=== PATIENT | female | born 1990 | race African-American/Black ===

== ENCOUNTER 2020-11-14 23:19 | Inpatient (IN) ==
[2020-11-14] MEDS ORDERED: ONDANSETRON 4 MG/2 ML VIAL IV PRN (23:30)
[2020-11-14] MEDS ORDERED: LACTATED RINGERS 1,000 ML IV ONE (23:30)
[2020-11-14 23:56] LABS: Basophils % 0.2 % (0.0-0.8); Hematocrit 35.4 VOL% (35.7-47.0); Hemoglobin 11.2 GM/DL (12.0-16.0); Immature Granulocytes Absolute 0.16 #; Lymphocytes # 1.7 10*3/uL (1.4-4.0); Lymphocytes % 9.9 % (21.3-54.2); Mean Corpuscular HGB Conc 31.6 GM/DL (32-36); Mean Corpuscular Volume 78.5 FL (87-102); Mean Platelet Volume 9.7 FL (9.6-12.0); Monocytes % 1.2 % (1.7-12.7); Neutrophils % 87.7 % (38.7-73.9); Platelet Count 297 T/CUMM (130-400); Red Blood Count 4.51 MC/CUMM (3.8-5.5); Red Cell Distribution Width 14.8 % (9.3-17.3); White Blood Count 16.7 T/CUMM (4-12)
[2020-11-15 00:17] LABS: Alanine Aminotransferase 15 U/L (13-56); Albumin 2.6 G/DL (3.4-5.0); Alkaline Phosphatase 272 U/L (45-117); Aspartate Amino Transferase 17 U/L (0-37); Bilirubin,Total < 0.39 MG/DL (0.2-1.0); Blood Urea Nitrogen 9 MG/DL (7-18); Calcium 8.8 MG/DL (8.5-10.1); Carbon Dioxide 22 MMOL/L (21-32); Estimated Glom Filtration Rate 139 ML/MIN; Glucose 128 MG/DL (74-106); Osmolality,Calculated 273.8 MOS/KG (273-304); Sodium 137 MMOL/L (136-145); Total Protein 7.4 G/DL (6.4-8.2)
[2020-11-15] MEDS: LACTATED RINGERS 1,000 ML IV SCH ×2 (01:50→11:35)
[2020-11-15] MEDS: MEPERIDINE 50 MG/1 ML VIAL IV PRN ×2 (11:10→13:33)
[2020-11-15] MEDS ORDERED: NALOXONE 0.4 MG/ML VIAL IV PRN (13:34)
[2020-11-15] MEDS ORDERED: PROMETHAZINE 25 MG/1 ML VIAL IM ONE (13:34)
[2020-11-15] MEDS ORDERED: hydrOXYzine HCL 25 MG/1 ML VIAL IM PRN (13:34)
[2020-11-15] MEDS ORDERED: diphenhydrAMINE 50 MG/1 ML VIAL IV PRN ×2 (13:34)
[2020-11-15] MEDS ORDERED: ePHEDrine 50 MG/ML VIAL IV PRN (13:34)
[2020-11-15] MEDS ORDERED: fentaNYL 2 MCG/ROPIV 0.2% EPID 100 ML EPIDURAL SCH (14:00)
[2020-11-15] MEDS ORDERED: TERBUTALINE 1 MG/1 ML VIAL SUBCUT ONE (14:17)
[2020-11-15] MEDS ORDERED: LACTATED RINGERS 1,000 ML IV ONE (14:30)
[2020-11-15] MEDS ORDERED: FAMOTIDINE 20 MG/2 ML VIAL IV ONE (14:30)
[2020-11-15] MEDS ORDERED: CITRIC ACID/SODIUM CITRATE 30 ML UDCUP PO ONE (14:30)
[2020-11-15 16:10] LABS: Bilirubin,Urine Negative (Negative); Blood, Urine Negative (Negative); Glucose,Urine (UA) Negative (Negative); Ketones,Urine 5 mg/dL (Negative); Mucus,Urine Occasional /LPF (Occasional); Nitrite,Urine Negative (Negative); Protein,Urine Negative; Squamous Epithelial Cell,Urine Occasional /HPF (0-10); Urine Appearance CLEAR (Clear); Urine Color Yellow (Yellow); Urine Urobilinogen < 2.0 EU/DL (0.2-1.0)
[2020-11-15] MEDS ORDERED: METHYLERGONOVINE 0.2 MG/1 ML AMP ONE (17:59)
[2020-11-15] MEDS ORDERED: CARBOPROST TROMETHAMINE 250 MCG/ML AMP IM ONE (17:59)
[2020-11-15] MEDS ORDERED: miSOPROStoL 200 MCG TABLET ONE (17:59)
[2020-11-15] MEDS ORDERED: OXYTOCIN/LR 20 UNIT/1,000 ML BAG IV ONE ×2 (17:59→18:38)
[2020-11-15] MEDS ORDERED: TRANEXAMIC ACID 1,000 MG/10 ML VIAL ONE (17:59)
[2020-11-15] MEDS ORDERED: SODIUM CHLORIDE 0.9% 0 ML IV ONE (18:00)
[2020-11-15 18:37] LABS: Cord Arterial Blood HCO3 16.4 MMOL/L
[2020-11-15] MEDS ORDERED: BISACODYL 10 MG SUPP RECTAL PRN (18:38)
[2020-11-15] MEDS ORDERED: HYDROCORTISONE 2.5% RECTAL CREAM 30 GM TUBE TOP PRN (18:38)
[2020-11-15] MEDS ORDERED: BENZOCAINE 20%/MENTHOL 0.5% SPRAY 56 GM CAN TOP PRN (18:38)
[2020-11-15] MEDS ORDERED: ONDANSETRON 4 MG/2 ML VIAL IV PRN (18:38)
[2020-11-15] MEDS ORDERED: LANOLIN 50% CREAM 0.3 OZ TUBE TOP PRN (18:38)
[2020-11-15] MEDS ORDERED: ACETAMINOPHEN 325 MG TABLET PO PRN (18:38)
[2020-11-15] MEDS ORDERED: oxyCODONE/ACETAMINOPHEN 5-325 MG TABLET PO PRN (18:38)
[2020-11-15] MEDS ORDERED: DIPH/TET/ACEL PERT BOOSTER VACCINE 0.5 ML VIAL IM ONE (18:38)
[2020-11-15] MEDS ORDERED: WITCH HAZEL PADS 100/JAR TOP PRN (18:38)
[2020-11-15] MEDS ORDERED: MEASLES/MUMPS/RUBELLA VACCINE 0.5 ML VIAL SUBCUT ONE (18:38)
[2020-11-15] MEDS ORDERED: RHO(D) IMMUNE GLOBULIN 300 MCG SYRINGE IM ONE (18:38)
[2020-11-15 18:44] LABS: Cord Venous Blood HCO3 17.8 MMOL/L; Cord Venous Blood PCO2 49.1 MMHG
[2020-11-15] MEDS: oxyCODONE/ACETAMINOPHEN 5-325 MG TABLET PO PRN (21:35)
[2020-11-15] MEDS: DOCUSATE SODIUM 100 MG CAPSULE PO SCH (22:36)
[2020-11-16] MEDS: IBUPROFEN 800 MG TABLET PO PRN ×2 (01:16→08:29)
[2020-11-16] MEDS: oxyCODONE/ACETAMINOPHEN 5-325 MG TABLET PO PRN ×3 (04:33→20:40)
[2020-11-16 05:23] LABS: Basophils % 0.2 % (0.0-0.8); Eosinophils # 0.1 10*3/uL (0.0-0.87); Eosinophils % 0.4 % (0.00-10.9); Hematocrit 31.1 VOL% (35.7-47.0); Hemoglobin 9.9 GM/DL (12.0-16.0); Immature Granulocytes % 0.6 %; Immature Granulocytes Absolute 0.08 #; Lymphocytes # 2.3 10*3/uL (1.4-4.0); Lymphocytes % 17.5 % (21.3-54.2); Mean Corpuscular HGB Conc 31.8 GM/DL (32-36); Mean Corpuscular Volume 78.3 FL (87-102); Mean Platelet Volume 10.2 FL (9.6-12.0); Monocytes % 6.2 % (1.7-12.7); Neutrophils % 75.1 % (38.7-73.9); Platelet Count 248 T/CUMM (130-400); Red Blood Count 3.97 MC/CUMM (3.8-5.5); White Blood Count 13.4 T/CUMM (4-12)
[2020-11-16] MEDS: IRON (CARBONYL)/VIT C/B12/FA TABLET PO SCH (08:02)
[2020-11-16] MEDS: LORATADINE 10 MG TABLET PO SCH (08:02)
[2020-11-16] MEDS: DOCUSATE SODIUM 100 MG CAPSULE PO SCH ×2 (08:02→20:40)
[2020-11-16] MEDS: guaiFENesin 200 MG/10 ML UDCUP PO PRN ×2 (12:45→20:39)
[2020-11-17] MEDS: guaiFENesin 200 MG/10 ML UDCUP PO PRN (01:24)
[2020-11-17] MEDS: IBUPROFEN 800 MG TABLET PO PRN (01:27)
[2020-11-17] MEDS: LORATADINE 10 MG TABLET PO SCH (08:21)
[2020-11-17] MEDS: IRON (CARBONYL)/VIT C/B12/FA TABLET PO SCH (08:21)
[2020-11-17] MEDS: DOCUSATE SODIUM 100 MG CAPSULE PO SCH (11:30)
[2020-11-17 11:36] VITALS: BP 107/60
== END 2020-11-17 13:45 | disposition home or self-care (01) | DRG 806 ==
LOC: N.LD 23:19 → N.OB 11-15 22:05
PROVIDERS: ADMIT Specialist; ATTEND Specialist